=== PATIENT | female | born 1995 | race Caucasian/White ===

== ENCOUNTER 2017-12-05 22:39 | Inpatient (IN) | payer OTHER ==
[2017-12-05 23:44] VITALS: BMI 44.5
--- NOTE | 2017-12-06 00:19 | HP ---
COWS - Scale Resting Pulse: 1= [place] 81-100 Sweatin=Flushed/Facial Moisture Restless Observation: 0= Sits Still Pupil Size: 1= Pupils >than Normal Bone or Joint Aches: 4=Acute Joint/Muscle Pain Runny Nose/ Eye Tearin= None GI Upset > 30mins: 2= Nausea/Diarrhea (nausea, diarrhea x 2) Tremor Observation: 2= Slight Tremor Visible Yawning Observation: 0= None Anxiety or Irritability: 4=Extreme Anxiety Goose Flesh Skin: 0=Smooth Skin COWS Score: 16 Admission [facility] Chief Complaint: Xanax withdrawal symptoms Allergies/Adverse Reactions: Allergies Allergy/AdvReac Type Severity Reaction Status Date / Time bupropion [From Wellbutrin] Allergy Verified 12/05/17 23:49 History of Present Illness: 22 years old female with a 7 years history of xanax, marijuana, PCP and suboxone dependence is seeking admission to detox. Patient has been to previous detox and reports insignificant period of sobriety. She has medical history of morbid obesity, depression and anxiety. She denies suicide attempt and suicidal ideation at this time. Exam Limitations: No Limitations - Ebola screening Have you traveled outside of the country in the last 21 days: No Have you had contact with anyone from an Ebola affected area: No Have you been sick,other than usual withdrawal symptoms: No Do you have a fever: No - Review of Systems Constitutional: Chills, Malaise, Night Sweats, Changes in sleep EENT: reports: No Symptoms Reported, Other (uses prescription glasses) Respiratory: reports: No Symptoms reported Cardiac: reports: No Symptoms Reported GI: reports: Diarrhea, Nausea, Poor Appetite, Poor Fluid Intake, Abdominal cramping : reports: No Symptoms Reported Musculoskeletal: reports: Back Pain, Muscle Pain Integumentary: reports: Dryness Neuro: reports: Tremors Endocrine: reports: No Symptoms Reported Hematology: reports: No Symptoms Reported Psychiatric: reports: Mood/Affect Appropiate, Orientated x3, Anxious Other Systems: Reviewed and Negative Patient History - Patient Medical History Hx Anemia: No Hx Asthma: No Hx Chronic Obstructive Pulmonary Disease (COPD): No Hx Cancer: No Hx Cardiac Disorders: No Hx Congestive Heart Failure: No Hx Hypertension: No Hx Hypercholesterolemia: No Hx Pacemaker: No HX Cerebrovascular Accident: No Hx Seizures: Yes (Last Capo. 2017) Hx Dementia: No Hx Diabetes: No Hx Gastrointestinal Disorders: No Hx Liver Disease: No Hx Genitourinary Disorders: No Hx Sexually Transmitted Disorders: No Hx Renal Disease (ESRD): No Hx Thyroid Disease: No Hx Human Immunodeficiency Virus (HIV): No (Negative 2016) Hx Hepatitis C: No Hx Depression: Yes (Not on medication) Hx Suicide Attempt: No Hx Schizophrenia: No Other Medical History: Anxiety - Not on medication - Patient Surgical History Past Surgical History: No Hx Neurologic Surgery: No Hx Cataract Extraction: No Hx Cardiac Surgery: No Hx Lung Surgery: No Hx Breast Surgery: No Hx Breast Biopsy: No Hx Abdominal Surgery: No Hx Appendectomy: No Hx Cholecystectomy: No Hx Genitourinary Surgery: No Hx Section: No Hx Orthopedic Surgery: No Anesthesia Reaction: No - PPD History Previous Implant?: Yes Documented Results: Negative w/proof Implanted On Prior [facility] Admission?: Yes Date: 07/13/15 PPD to be Administered?: Yes - Reproductive History Patient is a Female of Child Bearing Age (11 -55 yrs old): Yes Last Menstrual Period: 11/28/17 Patient : No - Smoking Cessation Smoking history: Current every day smoker Have you smoked in the past 12 months: Yes Aproximately how many cigarettes per day: 25 Hx Chewing Tobacco Use: No Initiated information on smoking cessation: Yes 'Breaking Loose' booklet given: 12/06/17 - Substance & Tx. History Hx Alcohol Use: No Hx Substance Use: Yes Substance Use Type: Marijuana, Opiates Hx Substance Use Treatment: Yes ([facility]) - Substances Abused Alprazolam (Xanax) Route: Oral Frequency: Daily Amount used: 10mg Age of first use: 15 Date of Last Use: 12/05/17 Marijuana/Hashish Route: Smoking Frequency: Daily Amount used: 3 blunts Age of first use: 13 Date of Last Use: 12/05/17 PCP Route: Smoking Frequency: Daily Amount used: 1 blunt Age of first use: 22 Date of Last Use: 12/04/17 suboxone Route: Oral Frequency: Daily Amount used: 10mg Age of first use: 16 Date of Last Use: 12/04/17 Family Disease History - Family Disease History Family Disease History: Other: Father (Hep C, Alcoholic) Admission Physical Exam [facility] - Vital Signs Vital Signs: Vital Signs - 24 hr 12/05/17 23:22 Temperature 99.0 F Pulse Rate 95 H Respiratory 18 Rate Blood Pressure 145/89 - Physical General Appearance: Yes: Moderate Distress HEENTM: Yes: EOMI, Normal ENT Inspection, Normocephalic, Normal Voice, IRIS Respiratory: Yes: Lungs Clear, Normal Breath Sounds, No Respiratory Distress Neck: Yes: Supple Breast: Yes: Breast Exam Deferred Cardiology: Yes: Tachycardia Abdominal: Yes: Within Normal Limits, Normal Bowel Sounds Genitourinary: Yes: Within Normal Limits Back: Yes: Normal Inspection Musculoskeletal: Yes: Back pain, Muscle Pain, Muscle weakness Extremities: Yes: Tremors Neurological: Yes: Alert, Normal Mood/Affect Integumentary: Yes: Dry Lymphatic: Yes: Within Normal Limits - Diagnostic (1) Sedative, hypnotic or anxiolytic dependence with withdrawal, uncomplicated Current Visit: Yes Status: Chronic (2) Anxiety Current Visit: Yes Status: Chronic (3) Depression Current Visit: Yes Status: Chronic Qualifiers: Major depression episode severity: unspecified (4) Morbid obesity Current Visit: Yes Status: Chronic (5) Nicotine dependence Current Visit: Yes Status: Chronic Qualifiers: Nicotine product type: cigarettes Cleared for Admission [facility] - Detox or Rehab [facility] Level of Care: Medically Managed Detox Regimen/Protocol: Valium [facility] Breath Alcohol Content Breath Alcohol Content: 0 Urine Pregancy Test - Result Urine Test Results: Negative- NO Line Present Urine Drug Screen - Results Drug Screen Negative: Yes Urine Drug Screen Results: THC-Marijuana, PCP-Phencyclidine, BZO-Benzodiazepines
[2017-12-06] MEDS ORDERED: P-EPHED 60MG/TRIPROLIDI 2.5MG TABLET PO PRN (00:30)
[2017-12-06] MEDS ORDERED: MAGNESIUM HYDROX 2400MG/30ML ORAL SUSPENSION 30 ML CUP PO PRN (00:30)
[2017-12-06] MEDS ORDERED: LOPERAMIDE HCL 2 MG CAPSULE PO PRN (00:30)
[2017-12-06] MEDS ORDERED: MAG HYDROX/AL HYDROX/SIMETH 30 ML UNIT-DOSE CUP PO PRN (00:30)
[2017-12-06] MEDS ORDERED: MAGNESIUM CITRATE 300 ML BOTTLE PO PRN (00:30)
[2017-12-06] MEDS ORDERED: NICOTINE POLACRILEX 2 MG GUM BC PRN (00:30)
[2017-12-06] MEDS ORDERED: diazePAM 5 MG TABLET PO ONE (00:30)
[2017-12-06] MEDS ORDERED: MENTHOL/PHENOL 1 EACH UD MM PRN (00:30)
[2017-12-06] MEDS ORDERED: guaiFENesin/D-METHORPHAN HB 10 ML UNIT-DOSE CUPS PO PRN (00:30)
[2017-12-06] MEDS: diazePAM 5 MG TABLET PO SCH ×3 (05:13→22:13)
[2017-12-06] MEDS: diazePAM 5 MG TABLET PO PRN ×3 (08:35→16:49)
--- NOTE | 2017-12-06 11:10 | PN ---
S CIWA - CIWA Score Nausea/Vomitin Muscle Tremors: 3 Anxiety: 3 Agitation: 3 Paroxysmal Sweats: 1-Minimal Palms Moist Orientation: 0-Oriented Tacttile Disturbances: 1-Very Mild Itch/Numbness Auditory Disturbances: 1-Very Mild Visual Disturbances: 0-None Headache: 2-Mild CIWA-Ar Total Score: 17 [facility] Progress Note (SOAP) Subjective: alert,irritable,anxious,interrupted sleep,tremor,pain in the body Objective: 12/06/17 11:06 Vital Signs Temperature 97.3 F L 12/06/17 10:17 Pulse Rate 79 12/06/17 10:17 Respiratory Rate 18 12/06/17 10:17 Blood Pressure 120/66 12/06/17 10:17 O2 Sat by Pulse Oximetry (%) ekg nsr,inverted t in v2 qt 354/451 no chest pain,no sob,no dizziness labs pending Assessment: 12/06/17 11:09 withdrawal symptom Plan: continue detox
[2017-12-06] MEDS: PRENATAL VITAMINS W/ FOLIC ACID TABLET (FP) PO SCH (11:19)
[2017-12-06] MEDS: NICOTINE 14 MG/24 HOURS TOPICAL PATCH TD SCH (11:20)
[2017-12-06] MEDS: hydrOXYzine PAMOATE 50 MG CAPSULE (FP) PO PRN ×2 (11:21→18:13)
[2017-12-06] MEDS: IBUPROFEN 400 MG TABLET (FP) PO PRN ×2 (12:30→22:14)
[2017-12-06] MEDS: CYCLOBENZAPRINE HCL 10 MG TABLET (FP) PO PRN ×2 (12:54→20:27)
[2017-12-06] MEDS: cloNIDine HCL 0.1 MG TABLET PO SCH ×2 (12:54→22:13)
--- NOTE | 2017-12-06 14:48 | EKG ---
Test Reason : Blood Pressure : / mmHG Vent. Rate : 098 BPM Atrial Rate : 098 BPM P-R Int : 124 ms QRS Dur : 094 ms QT Int : 354 ms P-R-T Axes : 057 047 026 degrees QTc Int : 451 ms NORMAL SINUS RHYTHM NONSPECIFIC T WAVE ABNORMALITY ABNORMAL ECG NO PREVIOUS ECGS AVAILABLE Confirmed by MD Darius, Elías ([id number]) on 12/06/2017 2:48:04 PM Referred By: Confirmed By:Elías Mccoy MD
[2017-12-06 16:03] LABS: URINE APPEARANCE TURBID; URINE BILIRUBIN NEGATIVE (<2.0 mg/dL); URINE BLOOD NEGATIVE (NEGATIVE); URINE COLOR YELLOW; URINE GLUCOSE (UA) NEGATIVE (NEGATIVE); URINE KETONE NEGATIVE (NEGATIVE); URINE LEUK ESTERASE NEGATIVE (NEGATIVE); URINE NITRITE NEGATIVE (NEGATIVE); URINE UROBILINOGEN 4.0 E.U/dl mg/dL (0.2-1.0)
[2017-12-06 16:25] LABS: URINE PROTEIN 1+ (NEGATIVE)
[2017-12-06 16:29] LABS: URINE BACTERIA FEW /hpf (NONE SEEN); URINE MUCUS MANY
--- NOTE | 2017-12-06 17:08 | CONSULT ---
[facility] Psychiatric Consult - Data Date of interview: 12/06/17 Admission source: [facility] Identifying data: Readmission to [facility] for this 22 y/o female seeking detox treatment on for opioid,xanax,phencyclidine and cannabis dependence.Patient is single without children,domiciled (lives with parents), unemployed and dependent on relatives for financial support. Substance Abuse History: Confirmed by patient in this session.Smoking history: Current every day smoker. Have you smoked in the past 12 months: Yes. Aproximately how many cigarettes per day: 25. Hx Chewing Tobacco Use: No. Initiated information on smoking cessation: Yes. 'Breaking Loose' booklet given : 12/06/17. - Substance & Tx. History. Hx Alcohol Use: No. Hx Substance Use: Yes. Substance Use Type: Marijuana, Opiates. Hx Substance Use Treatment: Yes ( [facility] - Substances Abused. Alprazolam (Xanax). Route : Oral. Frequency: Daily. Amount used: 10mg. Age of first use: 15. Date of Last Use: 12/05/17. Marijuana/Hashish. Route: Smoking. Frequency: Daily. Amount used: 3 blunts. Age of first use: 13. Date of Last Use: 12/05/17. PCP. Route: Smoking. Frequency: Daily. Amount used: 1 blunt. Age of first use: 22. Date of Last Use: 12/04/17. suboxone. Route: Oral. Frequency: Daily. Amount used: 10mg. Age of first use: 16. Date of Last Use: 12/04/17 Medical History: Morbid obesity and a distant history of withdrawal-related seizures. Psychiatric History: No reported history of psychiatric hospitalizations.Diagnosed with MDD,Anxiety Disorder and possibly Bipolar Disorder (patient becomes irritable at the mention of that diagnosis)." I am not bipolar and I don't want that thing to be part of my record." Denies any history of manic episodes.Ms Sadler used to be followed at the [facility] OPD clinic in the [place].She indicates,in this interview, that she stopped psychiatric OPD care several months ago.Patient reports a history of maintenance on various drugs which include the following agents : valproate, lamotrigine,mirtazapine,suboxone,lexapro,seroquel,gabapentin,buspirone and wellbutrin.Patient has become " wary " of psychotropic medications because of intolerable adverse effects (weight gain on seroquel + intense suicidal ideation on bupropion and lexapro).Onset of psychiatric issues seems to correlate with a significant loss ( of boyfriend in 2013).Self-medicated with alprazolam in the aftermath of this painful event and, as per self-report, the patient sank deeper into substance abuse + mood dysregulation.Patient denies history of suicide attempts. Physical/Sexual Abuse/Trauma History: No reported history of abuse. of boyfriend, in 2013, appears to be the single most precipitating factor in the occurrence of patient's distress and recourse to mental healthcare professionals. Additional Comment: Urine Drug Screen Results: THC-Marijuana, PCP-Phencyclidine , BZO-Benzodiazepines.Noted on admission. Mental Status Exam - Mental Status Exam Alert and Oriented to: Time, Place, Person Cognitive Function: Good Patient Appearance: Well Groomed (morbidly obese) Mood: Hostile (at first but became gradually amenable to conversation), Nervous , Withdrawn, Anxious, Irritable Affect: Mood Congruent, Constricted Patient Behavior: Fatigued, Cooperative Speech Pattern: Clear, Inappropriate (at times : patient makes frequent usage of profane language during the interview) Voice Loudness: Normal Thought Process: Goal Oriented Thought Disorder: Not Present Hallucinations: Denies Suicidal Ideation: Denies Homicidal Ideation: Denies Insight/Judgement: Poor Sleep: Poorly, Difficulty falling asleep (wants ambien) Appetite: Good Gait/Station: Normal Psychiatric Findings - Problem List ([place] 1, 2,3) (1) Sedative, hypnotic or anxiolytic dependence with withdrawal, uncomplicated Status: Acute (2) Opioid dependence Status: Acute (3) Marihuana dependence Status: Acute (4) Phencyclidine dependence Status: Acute (5) Nicotine dependence Status: Acute Qualifiers: Nicotine product type: cigarettes (6) Bipolar disorder Status: Suspected (7) Substance induced mood disorder Status: Acute (8) Insomnia Status: Acute (9) Non compliance w medication regimen Status: Chronic - Initial Treatment Plan Initial Treatment Plan: Psychoeducation.Sleep hygiene discussed in session.Detoxification in process.Patient has expressed the wish to a have a trial of fluoxetine but, in view of past history of intense suicidal tendencies while on an antidepressant drug (wellbutrin), it would be ill-advised to start the patient on prozac at this time (detox).Ms Sadler appears interested in entering rehabilitation treatment upon completion of current hospital course.This will offer an ideal opportunity for a more comprehensive exploration of this patient's true psychopathology (bipolar versus unipolar depression) and time for judicious treatment strategies.In the meantime, will address insomnia with ambien 10 mg po hs prn (at patient's request).Ms Sadler is made aware of the risk of parasomnias.Consents (verbally) to this plan of care.Observation.
[2017-12-06] MEDS ORDERED: MELATONIN 5 MG TABLETS PO PRN (22:00)
[2017-12-06] MEDS: THIAMINE HCL 100 MG TABLET (FP) PO SCH (22:13)
[2017-12-06] MEDS: ZOLPIDEM TARTRATE 10 MG TABLET (PARK CARE ONLY) PO PRN (22:13)
[2017-12-07] MEDS: diazePAM 5 MG TABLET PO SCH ×3 (05:41→22:06)
[2017-12-07] MEDS: hydrOXYzine PAMOATE 50 MG CAPSULE (FP) PO PRN ×2 (09:13→20:03)
[2017-12-07] MEDS: diazePAM 5 MG TABLET PO PRN (09:13)
[2017-12-07] MEDS: cloNIDine HCL 0.1 MG TABLET PO SCH ×2 (09:30→22:06)
[2017-12-07] MEDS: PRENATAL VITAMINS W/ FOLIC ACID TABLET (FP) PO SCH (09:30)
[2017-12-07] MEDS ORDERED: ONDANSETRON *ODT* 4 MG TABLET SL PRN (09:56)
[2017-12-07] MEDS: NICOTINE 14 MG/24 HOURS TOPICAL PATCH TD SCH (10:00)
[2017-12-07 10:08] LABS: HEMATOCRIT 36.9 % (32.4-45.2); HEMOGLOBIN 12.5 GM/dL (10.7-15.3); MCH 29.8 pg (25.7-33.7); MCHC 33.8 g/dl (32.0-36.0); MEAN CELL VOLUME 88.1 fl (80-96); MEAN PLT VOLUME 10.8 fl (7.5-11.1); PLATELET COUNT 204 K/MM3 (134-434); RBC 4.19 M/mm3 (3.60-5.2); RDW 13.7 % (11.6-15.6); WHITE BLOOD COUNT 7.8 K/mm3 (4.0-10.0)
[2017-12-07 10:13] LABS: CHLORIDE 109 mmol/L (98-107); POTASSIUM 3.7 mmol/L (3.5-5.1); SODIUM 141 mmol/L (136-145)
[2017-12-07 10:42] LABS: ALBUMIN 3.4 g/dl (3.4-5.0); ALK PHOS 66 U/L (45-117); ANION GAP 7 (8-16); BILIRUBIN,TOTAL 0.2 mg/dL (0.2-1.0); BLOOD UREA NITROGEN 9 mg/dL (7-18); CALCIUM 9.1 mg/dL (8.5-10.1); CO2 25 mmol/L (21-32); CREATININE 0.6 mg/dL (0.55-1.02); GLUCOSE,RANDOM 78 mg/dL (74-106); SGOT/AST 14 U/L (15-37); SGPT/ALT 28 U/L (12-78); TOT PROT 6.3 g/dl (6.4-8.2)
[2017-12-07] MEDS: RANITIDINE HCL 150 MG TABLET (FP) PO SCH ×2 (13:36→22:06)
[2017-12-07] MEDS: BUPRENORPHINE/NALOXONE 8 MG/2 MG FILM PACKET SL SCH (13:36)
--- NOTE | 2017-12-07 14:11 | PN ---
[facility] Progress Note Note: Asked to evaluate this 22 y/o female admitted to the unit for Heroin Detox. She reports a history of depression and anxiety in the consuicde text of her ex- boyfriend who committed suicide in 2013 She has a past psychiatric treatment for depression and treated with WEllbutrin she witdraws feom the treatment due to reported adverse events of the medication She has been off medicatons but reports feeling a little bit depressed following the of her grand mother 3 mo ago Her mental status examination is negative for thought disorder, suicidal or homicidal ideation She isolates hersel from peers in the unit and wishes individual counseling Advised to complete [facility] Detox treatment
--- NOTE | 2017-12-07 14:25 | PN ---
[facility] CIWA - CIWA Score Nausea/Vomitin-Mild Nausea/No Vomiting Muscle Tremors: 4-Moderate,w/Arms Extend Anxiety: 4-Mod. Anxious/Guarded Agitation: 4-Moderately Restless Paroxysmal Sweats: 1-Minimal Palms Moist Orientation: 0-Oriented Tacttile Disturbances: 1-Very Mild Itch/Numbness Auditory Disturbances: 0-None Visual Disturbances: 0-None Headache: 0-None Present CIWA-Ar Total Score: 15 [facility] COWS - Scale Resting Pulse: 0= [place] 80 or Below Sweatin= Chills/Flushing Restless Observation: 1= Difficult to Sit Still Pupil Size: 0= Normal to Room Light Bone or Joint Aches: 2= Severe Diffuse Aches Runny Nose/ Eye Tearin= Nasal Congestion GI Upset > 30mins: 2= Nausea/Diarrhea Tremor Observation of Outstretched Hands: 2= Slight Tremor Visible Yawning Observation: 2= >3x During Session Anxiety or Irritability: 2=Irritable/Anxious Goose Flesh Skin: 3=Piloerection COWS Score: 16 S Progress Note (SOAP) Subjective: patient reported taking suboxone for opiate addiction sweat tremor body ache joint pain irritable restlessness trouble sit still Objective: 12/07/17 14:29 Vital Signs Temperature 97.3 F L 12/07/17 09:46 Pulse Rate 72 12/07/17 09:46 Respiratory Rate 18 12/07/17 09:46 Blood Pressure 147/97 12/07/17 09:46 O2 Sat by Pulse Oximetry (%) Laboratory Last Values WBC 7.8 K/mm3 (4.0-10.0) 12/07/17 07:50 RBC 4.19 M/mm3 (3.60-5.2) 12/07/17 07:50 Hgb 12.5 GM/dL (10.7-15.3) 12/07/17 07:50 Hct 36.9 % (32.4-45.2) 12/07/17 07:50 MCV 88.1 fl (80-96) 12/07/17 07:50 MCH 29.8 pg (25.7-33.7) 12/07/17 07:50 MCHC 33.8 g/dl (32.0-36.0) 12/07/17 07:50 RDW 13.7 % (11.6-15.6) D 12/07/17 07:50 Plt Count 204 K/MM3 (134-434) 12/07/17 07:50 MPV 10.8 fl (7.5-11.1) 12/07/17 07:50 Sodium 141 mmol/L (136-145) 12/07/17 07:50 Potassium 3.7 mmol/L (3.5-5.1) 12/07/17 07:50 Chloride 109 mmol/L (98-107) H 12/07/17 07:50 Carbon Dioxide 25 mmol/L (21-32) 12/07/17 07:50 Anion Gap 7 (8-16) L 12/07/17 07:50 BUN 9 mg/dL (7-18) 12/07/17 07:50 Creatinine 0.6 mg/dL (0.55-1.02) 12/07/17 07:50 Creat Clearance w eGFR > 60 (>60) 12/07/17 07:50 Random Glucose 78 mg/dL (74-106) 12/07/17 07:50 Calcium 9.1 mg/dL (8.5-10.1) 12/07/17 07:50 Total Bilirubin 0.2 mg/dL (0.2-1.0) D 12/07/17 07:50 AST 14 U/L (15-37) L 12/07/17 07:50 ALT 28 U/L (12-78) 12/07/17 07:50 Alkaline Phosphatase 66 U/L (45-117) 12/07/17 07:50 Total Protein 6.3 g/dl (6.4-8.2) L 12/07/17 07:50 Albumin 3.4 g/dl (3.4-5.0) 12/07/17 07:50 Urine Color Yellow 12/06/17 08:42 Urine Appearance Turbid 12/06/17 08:42 Urine pH 5.0 (5.0-8.0) 12/06/17 08:42 Ur Specific [place] 1.030 (1.001-1.035) 12/06/17 08:42 Urine Protein 1+ (NEGATIVE) H 12/06/17 08:42 Urine Glucose (UA) Negative (NEGATIVE) 12/06/17 08:42 Urine Ketones Negative (NEGATIVE) 12/06/17 08:42 Urine Blood Negative (NEGATIVE) 12/06/17 08:42 Urine Nitrite Negative (NEGATIVE) 12/06/17 08:42 Urine Bilirubin Negative (<2.0 mg/dL) 12/06/17 08:42 Urine Urobilinogen 4.0 e.u/dl mg/dL (0.2-1.0) H 12/06/17 08:42 Ur Leukocyte Esterase Negative (NEGATIVE) 12/06/17 08:42 Urine WBC (Auto) 7 /hpf (3-5) 12/06/17 08:42 Urine RBC (Auto) None /hpf (0-3) 12/06/17 08:42 Urine Bacteria Few /hpf (NONE SEEN) 12/06/17 08:42 Urine Mucus Many 12/06/17 08:42 RPR Titer Nonreactive (NONREACTIVE) 12/07/17 07:50 lab noted Assessment: 12/07/17 14:30 withdrawal sx from benzo and suboxone Plan: continue detox begin suboxone detox
[2017-12-07] MEDS: ACETAMINOPHEN 325 MG TABLET (FP) PO PRN (20:04)
[2017-12-07] MEDS: ZOLPIDEM TARTRATE 10 MG TABLET (PARK CARE ONLY) PO PRN (22:06)
[2017-12-07] MEDS: THIAMINE HCL 100 MG TABLET (FP) PO SCH (22:06)
[2017-12-08] MEDS: diazePAM 5 MG TABLET PO PRN ×3 (05:26→17:25)
[2017-12-08] MEDS: hydrOXYzine PAMOATE 50 MG CAPSULE (FP) PO PRN ×2 (08:55→17:25)
--- NOTE | 2017-12-08 09:57 | PN ---
S Progress Note (SOAP) Subjective: alert,irritable,anxious,interrupted sleep,pain in the body Objective: 12/08/17 09:55 Vital Signs Temperature 97.7 F 12/08/17 09:12 Pulse Rate 93 H 12/08/17 09:12 Respiratory Rate 16 12/08/17 09:12 Blood Pressure 129/76 12/08/17 09:12 O2 Sat by Pulse Oximetry (%) Assessment: 12/08/17 09:55 withdrawal symptom 12/08/17 09:56 Laboratory Last Values WBC 7.8 K/mm3 (4.0-10.0) 12/07/17 07:50 RBC 4.19 M/mm3 (3.60-5.2) 12/07/17 07:50 Hgb 12.5 GM/dL (10.7-15.3) 12/07/17 07:50 Hct 36.9 % (32.4-45.2) 12/07/17 07:50 MCV 88.1 fl (80-96) 12/07/17 07:50 MCH 29.8 pg (25.7-33.7) 12/07/17 07:50 MCHC 33.8 g/dl (32.0-36.0) 12/07/17 07:50 RDW 13.7 % (11.6-15.6) D 12/07/17 07:50 Plt Count 204 K/MM3 (134-434) 12/07/17 07:50 MPV 10.8 fl (7.5-11.1) 12/07/17 07:50 Sodium 141 mmol/L (136-145) 12/07/17 07:50 Potassium 3.7 mmol/L (3.5-5.1) 12/07/17 07:50 Chloride 109 mmol/L (98-107) H 12/07/17 07:50 Carbon Dioxide 25 mmol/L (21-32) 12/07/17 07:50 Anion Gap 7 (8-16) L 12/07/17 07:50 BUN 9 mg/dL (7-18) 12/07/17 07:50 Creatinine 0.6 mg/dL (0.55-1.02) 12/07/17 07:50 Creat Clearance w eGFR > 60 (>60) 12/07/17 07:50 Random Glucose 78 mg/dL (74-106) 12/07/17 07:50 Calcium 9.1 mg/dL (8.5-10.1) 12/07/17 07:50 Total Bilirubin 0.2 mg/dL (0.2-1.0) D 12/07/17 07:50 AST 14 U/L (15-37) L 12/07/17 07:50 ALT 28 U/L (12-78) 12/07/17 07:50 Alkaline Phosphatase 66 U/L (45-117) 12/07/17 07:50 Total Protein 6.3 g/dl (6.4-8.2) L 12/07/17 07:50 Albumin 3.4 g/dl (3.4-5.0) 12/07/17 07:50 Urine Color Yellow 12/06/17 08:42 Urine Appearance Turbid 12/06/17 08:42 Urine pH 5.0 (5.0-8.0) 12/06/17 08:42 Ur Specific [place] 1.030 (1.001-1.035) 12/06/17 08:42 Urine Protein 1+ (NEGATIVE) H 12/06/17 08:42 Urine Glucose (UA) Negative (NEGATIVE) 12/06/17 08:42 Urine Ketones Negative (NEGATIVE) 12/06/17 08:42 Urine Blood Negative (NEGATIVE) 12/06/17 08:42 Urine Nitrite Negative (NEGATIVE) 12/06/17 08:42 Urine Bilirubin Negative (<2.0 mg/dL) 12/06/17 08:42 Urine Urobilinogen 4.0 e.u/dl mg/dL (0.2-1.0) H 12/06/17 08:42 Ur Leukocyte Esterase Negative (NEGATIVE) 12/06/17 08:42 Urine WBC (Auto) 7 /hpf (3-5) 12/06/17 08:42 Urine RBC (Auto) None /hpf (0-3) 12/06/17 08:42 Urine Bacteria Few /hpf (NONE SEEN) 12/06/17 08:42 Urine Mucus Many 12/06/17 08:42 RPR Titer Nonreactive (NONREACTIVE) 12/07/17 07:50 Plan: continue detox
[2017-12-08] MEDS: PRENATAL VITAMINS W/ FOLIC ACID TABLET (FP) PO SCH (10:08)
[2017-12-08] MEDS: BUPRENORPHINE/NALOXONE 8 MG/2 MG FILM PACKET SL SCH (10:09)
[2017-12-08] MEDS: cloNIDine HCL 0.1 MG TABLET PO SCH ×2 (10:09→22:06)
[2017-12-08] MEDS: diazePAM 5 MG TABLET PO SCH ×2 (10:09→22:07)
[2017-12-08] MEDS: NICOTINE 14 MG/24 HOURS TOPICAL PATCH TD SCH (10:09)
[2017-12-08] MEDS: RANITIDINE HCL 150 MG TABLET (FP) PO SCH ×2 (10:09→22:08)
[2017-12-08] MEDS: THIAMINE HCL 100 MG TABLET (FP) PO SCH (22:06)
[2017-12-08] MEDS: ZOLPIDEM TARTRATE 10 MG TABLET (PARK CARE ONLY) PO PRN (22:08)
[2017-12-09] MEDS: hydrOXYzine PAMOATE 50 MG CAPSULE (FP) PO PRN (08:34)
[2017-12-09] MEDS: ACETAMINOPHEN 325 MG TABLET (FP) PO PRN (08:34)
[2017-12-09 09:21] VITALS: BP 127/89; PULSE 86; TEMP 97.7
--- NOTE | 2017-12-09 09:31 | PN ---
[facility] Progress Note (SOAP) Subjective: alert,no complaint Objective: 12/09/17 09:27 Vital Signs Temperature 97.7 F 12/09/17 09:18 Pulse Rate 86 12/09/17 09:18 Respiratory Rate 16 12/09/17 09:18 Blood Pressure 127/89 12/09/17 09:18 O2 Sat by Pulse Oximetry (%) Assessment: 12/09/17 09:28 patient is stable to be discharged Plan: follow up with new focus on at 1pm 12/11/17 as appointment
[2017-12-09] MEDS: PRENATAL VITAMINS W/ FOLIC ACID TABLET (FP) PO SCH (09:46)
[2017-12-09] MEDS: diazePAM 5 MG TABLET PO SCH (09:46)
[2017-12-09] MEDS: cloNIDine HCL 0.1 MG TABLET PO SCH (09:46)
[2017-12-09] MEDS: RANITIDINE HCL 150 MG TABLET (FP) PO SCH (09:46)
[2017-12-09] MEDS ORDERED: BUPRENORPHINE/NALOXONE 2 MG/0.5 MG FILM PACKET SL SCH (10:00)
--- NOTE | 2017-12-09 10:43 | PN ---
[facility] Progress Note Note: patient seen with dr Rashid,agreed for suboxone 8mgs/2mgs sl film daily for 7 days,prescription given to patient patient will follow up with new focus on 12/11/17 at 1 pm for follow up on suboxone maintenance
--- NOTE | 2017-12-09 13:47 | PN ---
[facility] Progress Note Note: patient left before prescription for suboxone,
[2017-12-10] MEDS ORDERED: diazePAM 5 MG TABLET PO SCH (10:00)
[2017-12-11] MEDS ORDERED: BUPRENORPHINE/NALOXONE 2 MG/0.5 MG FILM PACKET SL SCH (06:00)
[2017-12-11] MEDS ORDERED: BUPRENORPHINE/NALOXONE 2 MG/0.5 MG FILM PACKET SL ONE (06:00)
== END 2017-12-09 10:15 | disposition home or self-care (01) | DRG 773 ==
LOC: YASAS 22:39 → Y6N 23:46
PROVIDERS: ADMIT Surgery; ATTEND Surgery
PROC: HZ2ZZZZ Detoxification Services for Substance Abuse Treatment (ICD-10-PCS; principal; 2017-12-05)
DX: F13.230 Sedative, hypnotic or anxiolytic dependence with withdrawal, uncomplicated (principal); F11.20 Opioid dependence, uncomplicated; F12.20 Cannabis dependence, uncomplicated; F16.20 Hallucinogen dependence, uncomplicated; F17.210 Nicotine dependence, cigarettes, uncomplicated; F31.9 Bipolar disorder, unspecified; F19.24 Other psychoactive substance dependence with psychoactive substance-induced mood disorder; F41.9 Anxiety disorder, unspecified; G47.00 Insomnia, unspecified; E66.01 Morbid (severe) obesity due to excess calories; Z68.41 Body mass index [BMI] 40.0-44.9, adult; Z91.14 Patient's other noncompliance with medication regimen; Z86.69 Personal history of other diseases of the nervous system and sense organs
CPT/HCPCS: 36415; 80053; 81003; 81015; 85027; 86593; 93005; 93010; J0735; Q0162